=== PATIENT | female | born 1980 | race Two or more races ===

== ENCOUNTER 2024-01-10 06:46 | Emergency (ER) | payer MEDICAID, OTHER ==
[2024-01-10] MEDS ORDERED: ONDANSETRON ODT 4 MG TAB PO ONE (07:15)
== END 2024-01-10 07:20 | disposition left against medical advice (07) ==
LOC: ER 06:46
DX: K29.00 Acute gastritis without bleeding (principal); E11.9 Type 2 diabetes mellitus without complications